=== PATIENT | male | born 1965 | race Caucasian/White ===

== ENCOUNTER → 2019-04-18 | Outpatient (CLI) | payer OTHER ==
[~2019-04-18] MED LIST: ALLEGRA ALLERG180 MG PO; CELEXA20 MG PO; CIPRO500 MG PO; DICLOFENAC SODI75 MG PO; FARXIGA10 MG PO; FLAGYL500 M1 PO; GLYBURIDE 2.52.5 MG PO; LISINOPRIL10 MG PO; METFORMIN HCL500 MG PO; SIMVASTATIN40 MG PO
--- NOTE | 2019-04-21 12:47 | TST ---
[place] [address] TREADMILL STRESS TEST Name: KRISTINRAKEL Jason Room: [facility]#: [id number] Admission: 04/18/19 Attend Phys: Osmar Monk, Discharge: Date of : 63 Date of Service: 04/18/19 1844 Report #: [id number] THIS REPORT FOR: cc: Osmar Monk John E. DO Liston, Michael J. MD [facility] ~ CC: Osmar Monk DO DATE OF SERVICE: 04/18/2019 PROCEDURE: Standard Parker protocol exercise stress test. INDICATION: Chest pain. CARDIAC HISTORY: None. CARDIAC RISK FACTORS: Age greater than 55, hyperlipidemia, hypertension and type 2 diabetes. DESCRIPTION OF PROCEDURE: The patient exercised per standard Parker protocol for a total of 4 minutes and 30 seconds. The patient achieved 92% of age-predicted maximum heart rate and an energy expenditure equivalent to 6.42 METS. The patient exhibited poor exercise tolerance. The resting heart rate was 100 beats per minute. The resting blood pressure was 118/81 mmHg. At peak stress, the heart rate was 152 beats per minute with a peak stress blood pressure of 212/65 mmHg. In recovery, heart rate was 117 beats per minute with a recovery blood pressure of 131/64 mmHg. Exercise was stopped due to dyspnea. The baseline 12-lead EKG showed sinus rhythm without significant ST segment or T-wave abnormality. EKGs obtained during and post-exercise show sinus rhythm and sinus tachycardia with no significant ST segment changes when compared to baseline. There were no stress-induced arrhythmias. IMPRESSION: 1. Clinical response, nonischemic. 2. EKG response[place] [address] TREADMILL STRESS TEST Name: RAKEL FOSTER Room: [facility]#: [id number] Admission: 04/18/19 Attend Phys: Osmar Monk, Discharge: Date of : 63 Date of Service: 04/18/191843 Report #: [id number] CONCLUSION: The standard Parker protocol stress test shows no evidence of stress-induced ischemia. <ELECTRONICALLY SIGNED> By: Serjio Maza MD, FACC 04/21/19 1247 1844 31 Serjio Maza MD, FACC /nt
== END ==
LOC: M.CRD 14:43
DX: R07.82 Intercostal pain (principal)

== ENCOUNTER → 2021-03-29 | Outpatient (CLI) | payer OTHER | LOC: M.CT 03-25 08:00 | PROVIDERS: ATTEND Family Medicine | DX: Z13.6 Encounter for screening for cardiovascular disorders (principal); I25.10 Atherosclerotic heart disease of native coronary artery without angina pectoris ==